=== PATIENT | female | born 1935 | race Caucasian/White ===

== ENCOUNTER → 2019-08-18 | Outpatient (CLI) | payer OTHER ==
[~2019-08-18] VITALS: Ht 162.6 cm; Wt 76.7 kg
[~2019-08-18] MED LIST: AMLODIPINE BESY10 MG PO; ANTIVERT25 MG PO; BAYER CHEWABLE81 MG PO; CEPASTAT CHERR18 TA2 PO; COLACE100 MG PO; DEMADEX20 MG PO; ELIQUIS5 MG PO; ENOXAPARIN40 MG/0.1 SUBQ; ERGOCALCIF50000 UNIT PO; IMDUR 30 MG TAB30 M1 PO; IPRAT-ALBUT 0.5-3 ML INH; K-DUR 20 MEQ T20 MEQ PO; KLOR-CON M2020 MEQ PO; LASIX 40 MG TAB40 M2 PO; LEVOTHYROXIN0.137 M1 PO; LIPITOR40 MG PO; MAXZIDE-25 MG1 EACH PO; NAPROSYN500 MG PO; NEURONTIN 300300 M1 PO; NITROGLYCERIN0.4 MG SUBLING; NORCO 5-325 TA1 EACH PO; NORVASC10 MG PO; PERCOCET PO; PLAVIX 75 MG TA75 M1 PO; PRILOSEC 20 MG20 MG PO; PROTONIX40 M1 PO; REMERON15 MG PO; REQUIP 0.25 M0.25 MG PO; SERTRALINE HCL100 MG PO; SPIRONOLACTONE25 M1 PO; SYNTHROID175 MCG PO; TOPROL XL25 MG PO; TOPROL XL50 MG PO; TRAMADOL 50 MG50 MG PO; VICODIN 5-3001 EACH PO; ZESTRIL10 MG PO; ZOLOFT50 MG PO
[2019-08-18 07:15] LABS: HEMATOCRIT 42.6 % (37.0-47.0); HEMOGLOBIN 13.9 gm/dL (12.0-15.0); MCH 28.7 pg (26.0-34.0); MCHC 32.5 g/dL (28.0-37.0); MCV 88.3 fL (80.0-100.0); RBC 4.83 mil/uL (4.20-5.00); RDW 15.4 % (10.5-14.5); WBC 9.7 thou/uL (4.0-11.0)
[2019-08-18 07:17] VITALS: BP 118/67
[2019-08-18 07:24] LABS: CALCIUM 9.8 mg/dL (8.5-10.1); CREATININE 1.2 mg/dL (0.6-1.0); POTASSIUM 4.1 mmol/L (3.5-5.1)
--- NOTE | 2019-08-18 17:05 | EKG ---
[place] [email or web address] [address] ELECTROCARDIOGRAM REPORT Name: TRISTEN MONTANA Room #: [facility]#: [id number] Admission: 08/18/19 Attend Phys: Dat Granger MD, Discharge: Date of : 37 Report #: [id number] THIS REPORT FOR: //name// [facility] Test Date: 2019-08-18 Test Time: 07:18:08 Pat Name: TRISTEN MONTANA Department: Room: Gender: F Ecological Modeler: Kianna ZAMBRANO : 1935 Requested By: Dat Granger Order Number: [id number] MD: Sam Shetty Measurements Intervals [place] Rate: 67 P: GA: QRS: 68 QRSD: 87 T: 6 QT: 414 QTc: 437 Interpretive Statements Atrial fibrillation Borderline low voltage, extremity leads Compared to ECG 09/24/2016 11:47:33 No significant changes Electronically Signed On 08-18-2019 17:04:55 [employer]ARY [employer]NER by Sam Shetty [email or web address] <ELECTRONICALLY SIGNED> By: Sam Shetty MD, [facility] 08/18/19 1704 718 7 Sam Shetty MD, FACC /EPI
--- NOTE | 2019-08-20 15:34 | CATHLAB ---
[facility] [address] [place] [address] INVASIVE PROCEDURE REPORT Name: TRISTEN MONTANA [id number] Admission: 08/18/19 Attend Phys: Dat Granger, Discharge: Date of : 37 Report #: [id number] THIS REPORT FOR: //name// APPROVED REPORT Study performed: 08/18/2019 07:36:17 Patient Details Patient Status: Out-Patient Room #: The patient is a 6 year-old male Event Personnel Dat Granger Polymer Specialist, Mich Cespedes RN, Andres Bartholomew, Nelda Lehman RTR Scrub, Shanice Dennis RTR Scrub Procedures Performed Right and Left Heart Cath w/or w/o Coronarie [id number] [facility] Aortogram Abdominal Peripheral Angio [id number] Indication Chest pain Procedure Narrative The Right Groin^ was infiltrated with 1% Lidocaine subcutaneous anesthesia. A PINNACLE 6FR Sheath #[id number] sheath was inserted into the . Coronary angiography was performed using coronary diagnostic catheters. The right coronary system was accessed and visualized with a 6FR 3DRC #[id number] catheter. The left coronary system was accessed and visualized with a jl4 catheter. The left ventricle was accessed and visualized with a pigtail catheter. Left ventriculogram was performed in 30 degree projection. An aortogram of the abdominal aorta was performed. Closure device was deployed with a 6 Fr MYNXGRIP 6/7F #[id number]. The patient tolerated the procedure well and there were no complications associated with the procedure. There was no hematoma. Intraoperative Conscious Sedation Sedation start time: 8.36 Case end Time: 9.22 Fentanyl 100 mcg Versed 1 mg Fluoro Time: 5.25 minutes Dose: DAP 56461.00 cGycm2 524 mGy Contrast Type and Amount: Visipaque 120 ml [facility] [address] [place] [address] INVASIVE PROCEDURE REPORT Name: TRISTEN MONTANA Room #: [facility]#: [id number] Admission: 08/18/19 Attend Phys: Dat JamiWilliam RolandBárbara, Discharge: Date of : 37 Report #: [id number] Hemodynamics The right atrial mean pressure is 12 mmHg. The right ventricular pressure is 58/4 mmHg. The pulmonary artery pressure is 57/22 mmHg with a mean of 35 mmHg. The mean pulmonary capillary wedge pressure is 13 mmHg. The aortic pressure is 152/55 mmHg with a mean of 84 mmHg. The left ventricular pressure is 134/2 mmHg with a mean of mmHg. The left ventricular end diastolic pressure is 9 mmHg. There was no gradient across the aortic valve upon pullback. Pullback from the left ventricle to the aorta revealed no gradient across the aortic valve. The cardiac output using thermo method is 3.10 L/min. Conclusion #1 successful right heart catheterization with cardiac output by thermodilution. See above hemodynamics. #2 normal left ventricular size with severe mitral insufficiency left atrial dilatation. 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 #6 nondominant circumflex OM moderately disease and proximal calcification. 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 Will need aggressive diuresis. Mitral insufficiency is significant elevated pulmonary pressures see above. <ELECTRONICALLY SIGNED> By: Dat Granger MD, FACC 08/20/19 1534 1534 1534 Dat Granger MD, FACC /INF
== END | disposition home or self-care (01) ==
LOC: CATH 06:25
PROVIDERS: Internal Medicine Cardiovascular Disease
DX: R07.9 Chest pain, unspecified (principal); I25.10 Atherosclerotic heart disease of native coronary artery without angina pectoris; I74.5 Embolism and thrombosis of iliac artery; I48.91 Unspecified atrial fibrillation; I10 Essential (primary) hypertension; E03.9 Hypothyroidism, unspecified; K21.9 Gastro-esophageal reflux disease without esophagitis; J44.9 Chronic obstructive pulmonary disease, unspecified; Z86.73 Personal history of transient ischemic attack (TIA), and cerebral infarction without residual deficits; Z98.890 Other specified postprocedural states; Z90.49 Acquired absence of other specified parts of digestive tract; Z98.0 Intestinal bypass and anastomosis status; Z87.442 Personal history of urinary calculi; Z90.710 Acquired absence of both cervix and uterus; Z79.01 Long term (current) use of anticoagulants; Z87.891 Personal history of nicotine dependence